=== PATIENT | male | born 1965 | race Caucasian/White ===

== ENCOUNTER → 2021-01-17 | Outpatient (CLI) | payer MEDICARE ==
[~2021-01-17] MED LIST: ABILIFY20 MG PO; ATORVASTATIN CA20 MG PO; AUGMENTIN 875-1 EACH PO; CLOPIDOGREL75 MG PO; D3-20002000 UNIT PO; DESYREL 50 MG T50 MG PO; ECOTRIN81 MG PO; LEVOTHYROXINE88 MCG PO; LIORESAL TAB 1010 MG PO; LITHIUM CARBON300 M3 PO; LOPRESSOR 25 MG25 MG PO; MINIPRESS5 MG PO; MOBIC15 MG PO; NICOTINE PATCH1 EAC2 TD; NORVASC 5 MG TAB5 MG PO; PROTONIX40 MG PO; PROZAC40 MG PO; ZESTRIL30 MG PO; ZOCOR40 MG PO
== END ==
LOC: EXRD 10:54
DX: R55 Syncope and collapse (principal); I65.23 Occlusion and stenosis of bilateral carotid arteries; E04.1 Nontoxic single thyroid nodule
CPT/HCPCS: 93880

== ENCOUNTER → 2022-02-10 | Outpatient (CLI) | payer MEDICARE | LOC: ECHO 09:00 → NM 10:00 | DX: I20.0 Unstable angina (principal) | CPT/HCPCS: ECHO; 78452; 93306; A9502; J2785 ==

== ENCOUNTER → 2022-02-13 | Outpatient (CLI) | payer MEDICARE, OTHER ==
[2022-02-13 13:14] LABS: HEMOGLOBIN 16.2 gm/dl (14.0-17.5); RED BLOOD COUNT 5.36 M/UL (4.20-5.50)
== END ==
LOC: LAB 12:43
PROVIDERS: Internal Medicine Interventional Cardiology
DX: I25.119 Atherosclerotic heart disease of native coronary artery with unspecified angina pectoris (principal); E11.9 Type 2 diabetes mellitus without complications; E78.5 Hyperlipidemia, unspecified; R00.2 Palpitations; R06.02 Shortness of breath; R94.39 Abnormal result of other cardiovascular function study
CPT/HCPCS: 36415; 80048; 85025; 85610; 85730; 93005

== ENCOUNTER → 2022-02-19 | Outpatient (CLI) | payer MEDICARE ==
[~2022-02-19] MED LIST changes: +AMLODIPINE BESY10 MG PO; +CRESTOR40 MG PO; +GLUCOTROL5 MG PO; +ZESTRIL20 MG PO
== END ==
LOC: CATH 06:35
DX: I25.110 Atherosclerotic heart disease of native coronary artery with unstable angina pectoris (principal); I25.2 Old myocardial infarction; I10 Essential (primary) hypertension; E78.5 Hyperlipidemia, unspecified; E11.9 Type 2 diabetes mellitus without complications; Z87.891 Personal history of nicotine dependence; Z95.5 Presence of coronary angioplasty implant and graft; Z88.5 Allergy status to narcotic agent; Z88.8 Allergy status to other drugs, medicaments and biological substances; Z79.82 Long term (current) use of aspirin; Z79.84 Long term (current) use of oral hypoglycemic drugs; Z79.899 Other long term (current) drug therapy
CPT/HCPCS: 82962; 99152; 99153; C1769; J1644; J2250; J3010; Q9965